=== PATIENT | male | born 2000 | race Caucasian/White ===

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

== ENCOUNTER 2019-10-25 22:12 | Emergency (ER) | payer OTHER ==
[2019-10-25 22:24] VITALS: BMI 22.4
--- NOTE | 2019-10-25 22:30 | PDOC ---
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 patient is also c/o right hand pain reports punching the wall a week ago. Last Vital Signs Temp Pulse Resp BP Pulse Ox 97.8 F 83 20 125/74 99 10/25/19 22:18 10/25/19 22:18 10/25/19 22:18 10/25/19 22:18 10/25/19 22:18 PE: patient alert [email or web address]. right hand swollen A: syncope/ right hand injury P: finger stick right hand xray 10/25/19 22:20 10/25/19 22:30 Discharge Disposition - Diagnosis Dizziness Injury of right hand Qualifiers: Encounter type: initial encounter Qualified Code(s): S69.91XA - Unspecified injury of right wrist, hand and finger(s), initial encounter - Referrals - Patient Instructions - Post Discharge Activity
[2019-10-25] MEDS ORDERED: SODIUM CHLORIDE 0.9% 500 ML INFUS.BAG IV ONE (23:22)
--- NOTE | 2019-10-25 23:37 | PDOC ---
History of Present Illness - General Chief Complaint: Syncope/Near Syncope Stated Complaint: SYNOCOPE Time Seen by Provider: 10/25/19 22:16 History Source: Patient Exam Limitations: No Limitations - History of Present Illness Initial Comments: 10/26/19 00:22 19 yo M with no pmhx and denies cardiac fmhx presents to the emergency department with syncopal event that occurred today. 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 He endorses not having adequate hydration throughout the week and does not have adequate air-conditioning in his living area. Per the patient, he was shopping for groceries today and when he returned home, he felt lightheadedness and had a syncopal episode. He was laying on the couch when this occurred and had a subsequent 2 more syncopal episodes. Currently, he states he feels generalized tiredness. Denies the following: fevers, chills, SOB, chest pain, nausea, vomiting, headache, visual disturbances, FND, abdominal pain, dysuria, hematuria, diarrhea, and leg pain. Allergies: NKDA Past History - Medical History Allergies/Adverse Reactions: Allergies Allergy/AdvReac Type Severity Reaction Status Date / Time No Known Allergies Allergy Verified 11/17/17 00:30 Home Medications: Ambulatory Orders Haloperidol Decanoate [Haldol Decanoate 100] 100 mg IM MONTHLY 07/13/17 [place] Carbonate [Eskalith -] 600 mg PO DAILY 07/13/17 Naltrexone HCl 50 mg PO ASDIR 07/13/17 Aripiprazole [Abilify] 50 mg PO DAILY 06/26/18 [place] Carbonate [Eskalith -] 1,050 mg PO DAILY 06/26/18 Albuterol Sulfate Inhaler - [Ventolin HFA Inhaler -] 1 - 2 inh PO Q4H PRN #1 inhaler 07/13/18 Azithromycin 250 mg PO DAILY #4 tablet 07/13/18 Prednisone [Prednisone 50 MG TABLETS] 50 mg PO DAILY #3 tablet 07/13/18 Asthma: Yes CVA: No COPD: No DVT: No Dementia: No Psychiatric Problems: Yes (ADHD,bipolar,OCD,skitsoaffective, anxiety, PTSD, depression) - Immunization History Immunization Up to Date: Yes - Psycho-Social/Smoking History Smoking History: Current every day smoker Have you smoked in the past 12 months: No Number of Cigarettes Smoked Daily: 7 Information on smoking cessation initiated: Yes 'Breaking Loose' booklet given: 10/25/17 - Substance Abuse Hx (Audit-C & DAST Scrn) How often the patient has a drink containing alcohol: Never Score: In Men: 4 or > Positive; In Women: 3 or > Positive: 0 Screen Result (Pos requires Nsg. Audit-10AR): Negative Review of Systems - Review of Systems Able to Perform ROS?: Yes Is the patient limited Monegasque proficient: No Constitutional: Yes: Weakness. No: Chills, Diaphoresis, Fever HEENTM: No: Eye Pain, Ear Pain, Nose Pain, Throat Pain, Mouth Pain Respiratory: No: Cough, Shortness of Breath Cardiac (ROS): Yes: Syncope. No: Chest Pain, Lightheadedness, Palpitations ABD/GI: Yes: Poor Fluid Intake. No: Constipated, Diarrhea, Nausea, Vomiting : No: Burning, Hematuria Musculoskeletal: No: Back Pain, Joint Pain Integumentary: No: Bruising, Rash Neurological: No: Headache Psychiatric: No: Change in Appetite Endocrine: No: Unexplained Weight Loss Hematologic/Lymphatic: No: Anemia *Physical Exam - Vital Signs Last Vital Signs Temp Pulse Resp BP Pulse Ox 97.8 F 83 20 125/74 99 10/25/19 22:18 10/25/19 22:18 10/25/19 22:18 10/25/19 22:18 10/25/19 22:18 - Physical Exam General Appearance: Yes: Nourished, Appropriately Dressed. No: Apparent Distress, Intoxicated HEENT: positive: EOMI, HOOD, Normal ENT Inspection, Normal Voice, Symmetrical, TMs Normal, Pharynx Normal, Hearing Grossly Normal, Other (dry mucous membranes). negative: Pale Conjunctivae, Scleral Icterus (R), Scleral Icterus (L), Muffled/Hoarse voice, Pharyngeal Erythema, Tonsillar Exudate, Tonsillar Chuck thema, Nasal Congestion, Rhinorrhea, Sinus Tenderness, Excessive drooling Neck: positive: Trachea midline, Supple. negative: Tender, Lymphadenopathy (R), Lymphadenopathy (L), Tender lateral, Tender midline Respiratory/Chest: positive: Lungs Clear, Normal Breath Sounds. negative: Chest Tender, Respiratory Distress, Accessory Muscle Use, Crackles, Rales, Rhonchi, Stridor, Wheezing Cardiovascular: positive: Regular Rhythm, Regular Rate, S1, S2. negative: Systolic Murmur Gastrointestinal/Abdominal: positive: Normal Bowel Sounds, Flat, Soft. negative: Tender, Distended, Guarding, Rebound Lymphatic: negative: Adenopathy Musculoskeletal: positive: Normal Inspection. negative: CVA Tenderness, Vertebral Tenderness Extremity: positive: Normal Capillary Refill, Normal Inspection, Normal Range of Motion. 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 negative: EOM Palsy, Facial Droop, Numbness, Sensory Deficit ED Treatment Course - LABORATORY CBC & Chemistry Diagram: 10/25/19 23:00 10/25/19 23:00 - Medications Given in the ED: ED Medications Discontinued Medications Generic Name Dose Route Start Last Admin Trade Name Freq PRN Reason Stop Dose Admin Sodium Chloride 1,000 ml 10/25/19 23:22 10/25/19 23:35 Normal Saline - IV 10/25/19 23:23 1,000 ml ONCE ONE Administration Medical Decision Making - Medical Decision Making 19 yo M with no pmhx presents to the emergency department s/p syncopal event Vitals: Initial Vital Signs Temp Pulse Resp BP Pulse Ox 97.8 F 83 20 125/74 99 10/25/19 22:18 10/25/19 22:18 10/25/19 22:18 10/25/19 22:18 10/25/19 22:18 Work up: patient presents to the emergency department s/p syncopal event. Per the patient, they have been working multiple days in the outdoors without hydration. In addition, the patients living facility does not have A/C. the patient states they feel quite thirsty. Given the patients prodromal sequence prior to the syncopal episodes, it is likely the syncopal episodes were related to dehydration 2/2 heat exhaustion. It is less likely to be secondary to a cardiogenic cause; the patient denies familial history and denies chest pain/palpitations prior to the syncope. No history of sudden cardiac in the family and no hx of dysrhythmia. Will obtain an EKG, cbc, cmp, and IV hydration. Laboratory Tests 10/25/19 10/25/19 10/25/19 23:00 23:00 23:46 WBC 6.7 RBC 4.11 Hgb 13.1 Hct 39.2 MCV 95.2 MCH 31.9 MCHC 33.5 RDW 13.8 Plt Count 119 L D MPV 9.8 Absolute Neuts (auto) 4.0 Neutrophils % 59.6 Lymphocytes % 28.0 Monocytes % 7.7 Eosinophils % 4.0 Basophils % 0.7 Nucleated RBC % 0 Sodium 141 Potassium 4.2 Chloride 108 H Carbon Dioxide 28 Anion Gap 5 L BUN 14.0 Creatinine 0.7 Est GFR (CKD-EPI)AfAm 157.45 Est GFR (CKD-EPI)NonAf 135.85 POC Glucometer 94 Random Glucose 98 Calcium 8.8 Total Bilirubin 0.4 AST 11 L ALT 14 Alkaline Phosphatase 65 Creatine Kinase 100 Troponin I < 0.02 Total Protein 6.7 Albumin 3.7 labs within normal limits patient received 2 liters of IVF. Patient was re-assessed. Per the patient, they state they feel much better. patient was given strict return precautions. EKG: NSR without ST elevations or depressions. Patient to be discharged. Discharge - Discharge Information Problems reviewed: Yes Clinical Impression/Diagnosis: Dizziness Injury of right hand Qualifiers: Encounter type: initial encounter Qualified Code(s): S69.91XA - Unspecified injury of right wrist, hand and finger(s), initial encounter Condition: Improved Disposition: HOME - Follow up/Referral Referrals: [facility] [Provider Group] - Patient Discharge Instructions Patient Printed Discharge Instructions: DI for Syncope in Adults (Fainting), DI for Dehydration -- Adult Additional Instructions: HOME CARE INSTRUCTIONS: Have someone stay with you until you feel stable. Do not drive, operate machinery, or play sports until your caregiver says it is okay. Keep all follow-up appointments as directed by your caregiver. Lie down right away if you start feeling like you might faint. Breathe deeply and steadily. Wait until all the symptoms have passed.Drink enough fluids to keep your urine clear or pale yellow. If you are taking blood pressure or heart medicine, get up slowly, taking several minutes to sit and then stand. This can reduce dizziness. Please stay well hydrated. SEEK IMMEDIATE MEDICAL CARE IF: You have a severe headache. You have unusual pain in the chest, abdomen, or back. You are bleeding from the mouth or rectum, or you have a black or tarry stool. You have an irregular or very fast heartbeat. You have pain with breathing. You have repeated fainting or seizure-like jerking during an episode. You faint when sitting or lying down. You have confusion. You have difficulty walking. You have severe weakness. You have vision problems. If you fainted, call your local emergency services - do not drive yourself to the hospital. - Post Discharge Activity Work/Back to School Note: Back to Work
--- NOTE | 2019-10-25 23:41 | PDOC ---
Attending Attestation - Resident Resident Name: Cedrick Dalton - ED Attending Attestation I have performed the following: I have examined & evaluated the patient, The case was reviewed & discussed with the resident, I agree w/resident's findings & plan - HPI HPI: 10/26/19 19:36 19 yo M with no pmhx and denies cardiac fmhx presents to the emergency department with syncopal event that occurred today. 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 He endorses not having adequate hydration throughout the week and does not have adequate air-conditioning in his living area. Per the patient, he was shopping for groceries today and when he returned home, he felt lightheadedness and had a syncopal episode. He was laying on the couch when this occurred and had a subsequent 2 more syncopal episodes/ no head trauma. complaining of sunburn to his back. Currently, he states he feels generalized tiredness. Denies the following: fevers, chills, SOB, chest pain, nausea, vomiting, headache, visual disturbances, FND, abdominal pain, dysuria, hematuria, diarrhea, and leg pain. - Physicial Exam PE: 10/25/19 23:39 Agree with the resident's HPI and PE as documented in the electronic medical record. NAD, well appearing, EOMI, PERRL, nl conjunctiva, anicteric; neck supple. lungs clear, RRR, abdomen soft nontender. no rebound, guarding. Back nontender. MCGHEE x4, no focal neuro deficits. speech clear. No peripheral edema. normal color for ethnicity, WWP. sunburn to his upper back and shoulder speech clear. 10/26/19 19:36 - Medical Decision Making 10/25/19 23:39 Vital Signs Temp Pulse Resp BP Pulse Ox 97.8 F 83 20 125/74 99 10/25/19 22:18 10/25/19 22:18 10/25/19 22:18 10/25/19 22:18 10/25/19 22:18 DDx syncope: considered interval abnormalities including short QTC or long QT syndrome, WPW, conduction abnormality, B[place], ACS, myocardial infarction/ischemia, arrhythmia, valvular heart disease such as , CHF/cardiomyopathy, PE, electrolyte disturbances, metabolic derangement, clinically significant bleeding, dehydration, seizure, [employer] lesion, CVA, ICH, SA H. vasovagal episode. Neuro exam is nonfocal, not consistent with CVA or primary neurologic abnormality. Cardiovascular s/s: none Considered but clinically doubt based on HPI and PE: neurologic condition/bleed or stroke. neurologically intact, comfortable in bed and sleeping no cp or sob no trauma to the head. brief LOC/likely vasovagal episode rt hand unremarkable, xray neg for boxer's fx. 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 Patient made aware of clinical impression, treatment recommendations and disposition plan, return precautions discussed (including but not limited to new or persistent/worsening symptoms, pain, fevers, or signs of infection, chest pain, respiratory distress, inability to tolerate oral intake, dehydration, syncope, or neurologic changes). Follow up with PMD as recommended, follow up information provided, take medications as instructed for duration of time. continue with supportive care, avoid triggers and precipitants. All questions answered to patient's satisfaction and expressed understanding and comfort with this. At the time of discharge, the patient is alert, clinically improved, tolerating po and verbalizes understanding of instructions, satisfied with the care received and felt comfortable with the plan. Patient does not suffer from an acute life-threatening medical condition at this time and is safe for outpatient follow-up. 10/25/19 23:41 10/26/19 19:37 10/26/19 19:37 Heart Score/ECG Review #1 ECG reviewed & interpreted by me at: 01:00 General ECG Interpretation: Sinus Rhythm, Normal Rate, Normal Intervals 10/26/19 19:37 EKG normal sinus rhythm 72 beats per min, no interval abnormalities, narrow QRS, ST and T wave segments and morphology normal. Nonspecific T wave abnormalities Discharge - Discharge Information Problems reviewed: Yes Clinical Impression/Diagnosis: Dizziness Injury of right hand Qualifiers: Encounter type: initial encounter Qualified Code(s): S69.91XA - Unspecified injury of right wrist, hand and finger(s), initial encounter Condition: Improved Disposition: HOME - Admission No - Follow up/Referral Referrals: [facility] [place]Provider Group] - Patient Discharge Instructions Patient Printed Discharge Instructions: DI for Syncope in Adults (Fainting), DI for Dehydration -- Adult Additional Instructions: HOME CARE INSTRUCTIONS: Have someone stay with you until you feel stable. Do not drive, operate machinery, or play sports until your caregiver says it is okay. Keep all follow-up appointments as directed by your caregiver. Lie down right away if you start feeling like you might faint. Breathe deeply and steadily. Wait until all the symptoms have passed.Drink enough fluids to keep your urine clear or pale yellow. If you are taking blood pressure or heart medicine, get up slowly, taking several minutes to sit and then stand. This can reduce dizziness. Please stay well hydrated. SEEK IMMEDIATE MEDICAL CARE IF: You have a severe headache. You have unusual pain in the chest, abdomen, or back. You are bleeding from the mouth or rectum, or you have a black or tarry stool. You have an irregular or very fast heartbeat. You have pain with breathing. You have repeated fainting or seizure-like jerking during an episode. You faint when sitting or lying down. You have confusion. You have difficulty walking. You have severe weakness. You have vision problems. If you fainted, call your local emergency services - do not drive yourself to the hospital. - Post Discharge Activity Work/Back to School Note: Back to Work
[2019-10-25 23:48] LABS: BASO % 0.7 % (0-2.0); HEMATOCRIT 39.2 % (35.4-49); HEMOGLOBIN 13.1 GM/dL (11.7-16.9); MCH 31.9 pg (25.7-33.7); MCHC 33.5 g/dl (32.0-35.9); MEAN CELL VOLUME 95.2 fl (80-96); MEAN PLT VOLUME 9.8 fl (7.5-11.1); MONO % 7.7 % (3.8-10.2); NEUT % 59.6 % (42.8-82.8); PLATELET COUNT 119 K/MM3 (134-434); RBC 4.11 M/mm3 (4.00-5.60); RDW 13.8 % (11.9-15.9); WHITE BLOOD COUNT 6.7 K/mm3 (4.0-10.0)
[2019-10-26 00:12] LABS: ALBUMIN 3.7 g/dl (3.4-5.0); ALK PHOS 65 U/L (45-117); ANION GAP 5 MMOL/L (8-16); BILIRUBIN,TOTAL 0.4 mg/dL (0.2-1); CALCIUM 8.8 mg/dL (8.5-10.1); CHLORIDE 108 mmol/L (98-107); CO2 28 mmol/L (21-32); CREATININE 0.7 mg/dL (0.55-1.3); GLUCOSE,RANDOM 98 mg/dL (74-106); POTASSIUM 4.2 mmol/L (3.5-5.1); SGOT/AST 11 U/L (15-37); SGPT/ALT 14 U/L (13-61); SODIUM 141 mmol/L (136-145); TOT PROT 6.7 g/dl (6.4-8.2)
[2019-10-26] MEDS ORDERED: LACTATED RINGERS SOLUTION 1000 ML INFUS.BAG IV ONE (00:15)
[2019-10-26 01:39] VITALS: BP 126/73; PULSE 81; TEMP 98.2
--- NOTE | 2019-10-26 09:19 | EKG ---
Test Reason : Blood Pressure : / mmHG Vent. Rate : 072 BPM Atrial Rate : 072 BPM P-R Int : 162 ms QRS Dur : 104 ms QT Int : 372 ms P-R-T Axes : 068 056 041 degrees QTc Int : 407 ms NORMAL SINUS RHYTHM NORMAL ECG WHEN COMPARED WITH ECG OF 18-DEC-2016 23:07, RSR' PATTERN IN V1 IS NO LONGER PRESENT Confirmed by MD JAZZY, TARI ([id number]) on 10/26/2019 9:18:30 AM Referred By: Confirmed By:TARI PURCELL MD
== END 2019-10-26 01:40 | disposition home or self-care (01) ==
LOC: JER 22:12
DX: R42 Dizziness and giddiness (principal); S69.91XA Unspecified injury of right wrist, hand and finger(s), initial encounter
CPT/HCPCS: 36415; 73130-TC-RT-FY; 80053; 82550; 82962; 84484; 85025; 93005; 93010; 99284-25

== ENCOUNTER 2020-09-04 12:55 | Emergency (ER) | payer OTHER ==
[2020-09-04 13:14] VITALS: BP 111/64; PULSE 84; TEMP 98; BMI 20.7
[2020-09-04] MEDS ORDERED: ACETAMINOPHEN 500 MG TABLET (FP) PO ONE (13:41)
[2020-09-04] MEDS ORDERED: SODIUM CHLORIDE 0.9% 500 ML INFUS.BAG IV ONE (13:41)
[2020-09-04] MEDS ORDERED: ACETAMINOPHEN 325 MG TABLET (FP) ONE (13:49)
[2020-09-04 15:15] LABS: BASO % 0.5 % (0-2.0); EOS % 0.7 % (0-4.5); HEMATOCRIT 44.3 % (35.4-49); HEMOGLOBIN 15.1 GM/dL (11.7-16.9); LYMPH % 10.9 % (8-40); MCH 32.5 pg (25.7-33.7); MEAN CELL VOLUME 95.4 fl (80-96); MEAN PLT VOLUME 10.8 fl (7.5-11.1); MONO % 4.7 % (3.8-10.2); NEUT % 83.2 % (42.8-82.8); PLATELET COUNT 109 K/MM3 (134-434); RBC 4.64 M/mm3 (4.00-5.60); WHITE BLOOD COUNT 11.2 K/mm3 (4.0-10.0)
[2020-09-04 15:26] LABS: CHLORIDE 108 mmol/L (98-107); SODIUM 142 mmol/L (136-145)
[2020-09-04 15:28] LABS: ALBUMIN 4.6 g/dl (3.4-5.0); ANION GAP 8 MMOL/L (8-16); BLOOD UREA NITROGEN 16.8 mg/dL (7-18); CALCIUM 9.2 mg/dL (8.5-10.1); CO2 25 mmol/L (21-32); GLUCOSE,RANDOM 84 mg/dL (74-106)
[2020-09-04 15:31] LABS: SGOT/AST 14 U/L (15-37); SGPT/ALT 16 U/L (13-61)
[2020-09-04 15:32] LABS: CREATININE 0.8 mg/dL (0.55-1.3)
[2020-09-04 15:33] LABS: BILIRUBIN,TOTAL 0.9 mg/dL (0.2-1); TOT PROT 7.4 g/dl (6.4-8.2)
[2020-09-04 15:34] LABS: ALK PHOS 70 U/L (45-117)
== END 2020-09-04 16:14 | disposition home or self-care (01) ==
LOC: JER 12:55
DX: R07.89 Other chest pain (principal)
CPT/HCPCS: 36415; 71046-TC-FY; 71101-TC-RT-FY; 80053; 82550; 82553; 84484; 85025; 93005; 93010; 99284-25

== ENCOUNTER 2021-12-19 23:02 | Emergency (ER) | payer OTHER ==
[2021-12-19 23:09] VITALS: BP 117/65; PULSE 67; RESP 18; TEMP 98; BMI 19.8
== END 2021-12-20 00:45 | disposition left against medical advice (07) ==
LOC: JER 23:02
DX: S69.90XA Unspecified injury of unspecified wrist, hand and finger(s), initial encounter (principal)
CPT/HCPCS: 99283-25; 99284-25

== ENCOUNTER 2021-12-20 23:03 | Emergency (ER) | payer OTHER ==
[2021-12-20 23:14] VITALS: BP 108/69; PULSE 82; RESP 19; BMI 20.5
[2021-12-20 23:23] VITALS: TEMP 97.8
== END 2021-12-20 23:50 | disposition home or self-care (01) ==
LOC: JER 23:03
DX: M79.644 Pain in right finger(s) (principal)
CPT/HCPCS: 99281-25

== ENCOUNTER 2022-01-20 10:58 | Emergency (ER) | payer OTHER ==
[2022-01-20 11:06] VITALS: BP 113/78; PULSE 81; RESP 18; TEMP 98; BMI 20.2
== END 2022-01-20 14:08 | disposition home or self-care (01) ==
LOC: JERFT 10:58
DX: M25.521 Pain in right elbow (principal)
CPT/HCPCS: 72070-TC-FY; 72100-TC-FY; 73030-TC-RT-FY; 73070-TC-RT-FY; 73090-TC-RT-FY; 99284-25

== ENCOUNTER 2022-03-26 13:53 | Emergency (ER) | payer OTHER ==
[2022-03-26] MEDS ORDERED: DIPHTH,PERTUSS(ACELL),TET 0.5 ML DISP.SYRIN IM ONE ×2 (16:16→16:18)
[2022-03-26 16:21] VITALS: BP 107/68; PULSE 75; RESP 18; TEMP 97.9; BMI 22.6
== END 2022-03-26 16:56 | disposition home or self-care (01) ==
LOC: JER 13:53 → JERFT 13:53
PROC: 3E0234Z Introduction of Serum, Toxoid and Vaccine into Muscle, Percutaneous Approach (ICD-10-PCS; principal; 2022-03-26)
DX: S61.412A Laceration without foreign body of left hand, initial encounter (principal); W26.8XXA Contact with other sharp object(s), not elsewhere classified, initial encounter
CPT/HCPCS: 73130-TC-LT-FY; 90471; 90715; 99284-25

== ENCOUNTER 2024-08-30 19:51 | Emergency (ER) | payer OTHER ==
[2024-08-30 19:58] VITALS: BP 114/73; PULSE 84; RESP 18; TEMP 98; BMI 19.7
[2024-08-30] MEDS: IBUPROFEN 400 MG TABLET (FP) PO ONE (21:03)
== END 2024-08-30 21:21 | disposition home or self-care (01) ==
LOC: JERFT 19:51
DX: S90.32XA Contusion of left foot, initial encounter (principal); W22.09XA Striking against other stationary object, initial encounter
CPT/HCPCS: 73630-TC-LT; 99283-25

== ENCOUNTER 2024-10-18 11:04 | Emergency (ER) | payer OTHER ==
[2024-10-18 11:36] VITALS: BP 111/76; PULSE 82; RESP 18; TEMP 98.7; BMI 22.1
[2024-10-18] MEDS ORDERED: ACETAMINOPHEN 325 MG TABLET (FP) ONE (12:35)
[2024-10-18] MEDS ORDERED: KETOROLAC TROMETHAMINE 15 MG/ML VIAL ONE (12:35)
[2024-10-18] MEDS ORDERED: LIDOCAINE 4% PATCH TP ONE (12:35)
[2024-10-18] MEDS: KETOROLAC TROMETHAMINE 15 MG/ML VIAL IM ONE (12:41)
[2024-10-18] MEDS: ACETAMINOPHEN 325 MG TABLET (FP) PO ONE (12:41)
[2024-10-18] MEDS: LIDOCAINE 5% TOPICAL PATCH TP ONE (12:41)
[2024-10-18] MEDS ORDERED: LIDOCAINE PATCH REMOVAL MC SCH (22:00)
== END 2024-10-18 13:07 | disposition home or self-care (01) ==
LOC: JERFT 11:04
PROC: 3E0233Z Introduction of Anti-inflammatory into Muscle, Percutaneous Approach (ICD-10-PCS; principal; 2024-10-18)
DX: M54.50 Low back pain, unspecified (principal); X50.0XXA Overexertion from strenuous movement or load, initial encounter
CPT/HCPCS: 96372; 99284-25